=== PATIENT | male | born 1985 | race Caucasian/White ===

== ENCOUNTER 2018-06-08 13:33 | Emergency (ER) | payer BC ==
[2018-06-08 14:04] VITALS: BMI 25.1
[2018-06-08 16:04] LABS: BASO % 0.2 % (0-2.0); HEMATOCRIT 44.3 % (35.4-49); HEMOGLOBIN 15.3 GM/dL (11.7-16.9); LYMPH % 6.3 % (8-40); MCH 29.7 pg (25.7-33.7); MCHC 34.6 g/dl (32.0-35.9); MEAN CELL VOLUME 85.9 fl (80-96); MEAN PLT VOLUME 9.9 fl (7.5-11.1); MONO % 2.2 % (3.8-10.2); NEUT % 91.3 % (42.8-82.8); PLATELET COUNT 179 K/MM3 (134-434); RBC 5.16 M/mm3 (4.00-5.60); RDW 14.1 % (11.9-15.9); WHITE BLOOD COUNT 14.9 K/mm3 (4.0-10.0)
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
[2018-06-08 17:39] LABS: PLATELET ESTIMATE ADEQUATE
[2018-06-08 17:41] LABS: URINE APPEARANCE CLEAR; URINE BILIRUBIN NEGATIVE (<2.0 mg/dL); URINE COLOR YELLOW; URINE GLUCOSE (UA) NEGATIVE (NEGATIVE); URINE KETONE 1+ (NEGATIVE); URINE LEUK ESTERASE NEGATIVE (NEGATIVE); URINE NITRITE NEGATIVE (NEGATIVE); URINE PROTEIN NEGATIVE (NEGATIVE); URINE UROBILINOGEN NEGATIVE mg/dL (0.2-1.0)
[2018-06-08 18:22] VITALS: BP 132/84; PULSE 80; TEMP 98
== END 2018-06-08 18:22 | disposition home or self-care (01) ==
LOC: JER 13:33
DX: R42 Dizziness and giddiness (principal); D72.9 Disorder of white blood cells, unspecified
CPT/HCPCS: 36415; 81003; 85025; 87086; 99283-25